=== PATIENT | male | born 1985 | race Caucasian/White ===

== ENCOUNTER 2019-09-29 09:49 | Emergency (ER) | payer SELFPAY ==
[~2019-09-29] VITALS: Ht 177.8 cm; Wt 100.0 kg
[~2019-09-29 09:49] MED LIST: FLEXERIL10 MG PO; NAPROSYN500 MG PO; NO HOME MEDS
[2019-09-29] MEDS ORDERED: ROBITUSSIN AC10 ML PO (11:14)
[2019-09-29] MEDS ORDERED: CEPHALEXIN500 M1 PO (11:14)
[2019-09-29 11:21] VITALS: BP 151/94
== END 2019-09-29 11:27 | disposition home or self-care (01) | DRG 153 ==
LOC: ED 09:49
DX: J06.9 Acute upper respiratory infection, unspecified (principal); F17.210 Nicotine dependence, cigarettes, uncomplicated

== ENCOUNTER 2019-12-10 | Emergency (ER) | payer SELFPAY ==
[~2019-12-10] MED LIST changes: +CEPHALEXIN500 M1 PO; +ROBITUSSIN AC10 ML PO
[2019-12-10 10:15] LABS: HEMATOCRIT 43.1 % (39.0-50.0); HEMOGLOBIN 14.7 g/dl (14.0-18.0); IMMATURE GRANULOCYTES 0.3 % (0.0-5.0); MEAN CELL VOLUME 88.5 fL CALC (80.0-100.0); MEAN CORPUSCULAR HGB 30.2 pG CALC (26.0-32.0); MEAN CORPUSCULAR HGB CONC 34.1 g/L CALC (32.0-36.0); NEUT# 3.31 thou/uL (1.82-7.42); RED BLOOD COUNT 4.87 mill/uL (4.70-6.10); RED CELL DISTRI WIDTH 12.9 % (11.5-15.5)
[2019-12-10 10:29] LABS: ALBUMIN 4.5 g/dL (3.2-5.0); ALKALINE PHOSPHATASE 38 u/l (38-126); ANION GAP 14 (6-22 (CALC)); BILIRUBIN, TOTAL 0.5 mg/dL (0.0-1.4); BUN 9 mg/dL (9-20); BUN/CREATININE RATIO 14 (12-20 (CALC)); CARBON DIOXIDE 23 mmol/l (22-30); CHLORIDE 107 mmol/l (95-108); CREATININE 0.7 mg/dL (0.7-1.3); GFR > 60 ML/MIN (>=60 (CALC)); GFR FOR AFR.AMER. > 60 ML/MIN (>=60 (CALC)); SODIUM 139 mmol/l (137-146); TOTAL PROTEIN 8.1 g/dL (6.3-8.2)
[2019-12-10 10:34] LABS: SGOT/AST 36 u/l (17-59)
== END 2019-12-10 11:30 | disposition home or self-care (01) | DRG 313 ==
PROVIDERS: Family Medicine
DX: R07.9 Chest pain, unspecified (principal); F17.210 Nicotine dependence, cigarettes, uncomplicated

== ENCOUNTER 2020-10-13 06:34 | Emergency (ER) | payer SELFPAY ==
[~2020-10-13] VITALS: Ht 177.8 cm; Wt 111.0 kg
[2020-10-13 08:27] VITALS: BP 142/97
== END 2020-10-13 08:36 | disposition home or self-care (01) ==
LOC: ED 06:34
DX: M25.511 Pain in right shoulder (principal); F17.200 Nicotine dependence, unspecified, uncomplicated